=== PATIENT | female | born 1955 | race African-American/Black ===

== ENCOUNTER 2019-02-13 22:01 | Emergency (ER) | payer MEDICAID ==
[~2019-02-13] VITALS: Ht 165.1 cm; Wt 90.7 kg
[2019-02-13] MEDS ORDERED: ACETAMINOPHEN 325 MG TAB PO ONE (22:30)
[2019-02-13 23:25] LABS: Basophils # (auto) 0.1 uL; Basophils % (auto) 0.4 % (0.0-2.0); Eosinophils # (auto) 0 uL; Hematocrit 40.1 % (36.0-46.0); Hemoglobin 13.1 g/dL (12.2-16.2); Lymphocytes # (auto) 1.5 uL; Lymphocytes % (auto) 11.2 % (10.0-50.0); Mean Corpuscular Hemoglobin 29.6 pg (28.0-32.0); Mean Corpuscular Hgb Conc. 32.7 g/dL (32.0-36.0); Mean Corpuscular Volume 90.6 fL (80.0-100.0); Monocytes # (auto) 0.6 uL; Monocytes % (auto) 4.3 % (0.0-12.0); Neutrophils % (auto) 84.1 % (37.0-80.0); Platelet Count (auto) 245 10^3/uL (140-450); Red Blood Cells 4.43 10^6/uL (4.0-5.20); Red Cell Distribution Width 13.7 % (11.8-14.3); White Blood Cell 13.1 10^3/uL (4.4-10.8)
[2019-02-13 23:41] LABS: INR 1.02 (0.9-1.15); Partial Thromboplastin Time 26.9 sec (23.78-33.04); Prothrombin Time 10.9 sec (9.27-12.13)
[2019-02-13 23:43] LABS: Albumin 3.8 g/dL (3.4-5.0); Anion Gap 6 (5-15); Blood Urea Nitrogen 13 mg/dL (7-18); Carbon Dioxide 26 mmol/L (21-32); Chloride 106 mmol/L (98-107); Glucose 99 mg/dL (74-106); Potassium 3.8 mmol/L (3.5-5.1); Sodium 138 mmol/L (136-145)
[2019-02-13 23:45] LABS: Alanine Aminotransferase 21 U/L (13-56); Aspartate Aminotransferase 14 U/L (15-37); BUN/Creatinine Ratio 9.8; GFR African American 52 mL/min; GFR Non-African American 43 mL/min
[2019-02-13 23:50] LABS: Alkaline Phosphatase 73 U/L (45-117); Bilirubin, Total 0.5 mg/dL (0.2-1.0); Total Protein 8.8 g/dL (6.4-8.2)
[2019-02-14] MEDS ORDERED: SODIUM CHLORIDE 0.9% 1,000 ML IV ONE (01:30)
[2019-02-14 03:57] LABS: Alcohol, Urine < 3.0 mg/dL (0-5); Amphetamine Screen, Urine NEGATIVE (NEGATIVE); Barbiturate Scree,Urine NEGATIVE (NEGATIVE); Benzodiazephine Screen, Urine NEGATIVE (NEGATIVE); Cannabinoid Screen, Urine NEGATIVE (NEGATIVE); Cocaine Screen, Urine NEGATIVE (NEGATIVE); Opiate Scree,Urine NEGATIVE (NEGATIVE); Phencyclidine Screen, Urine NEGATIVE (NEGATIVE)
[2019-02-14 04:07] LABS: Urine Bacteria MOD /hpf (None Seen); Urine Blood Negative /uL (Negative); Urine Mucus FEW (None Seen); Urine Specific Gravity 1.015 (1.001-1.035); Urine WBC 14 /hpf (0 - 5)
[2019-02-14 04:30] VITALS: BP 151/75
[2019-02-14] MEDS ORDERED: ACETAMINOPHEN 325 MG TAB PO ONE (04:30)
[2019-02-14] MEDS ORDERED: cefTRIAXone 1GM/50ML D5W 50 ML IV ONE (05:00)
== END 2019-02-14 06:11 | disposition home or self-care (01) ==
LOC: EDBD 22:01 → ER 22:09
DX: R53.1 Weakness (principal); N39.0 Urinary tract infection, site not specified; F17.210 Nicotine dependence, cigarettes, uncomplicated; E11.9 Type 2 diabetes mellitus without complications; I10 Essential (primary) hypertension; Z86.39 Personal history of other endocrine, nutritional and metabolic disease; Z88.8 Allergy status to other drugs, medicaments and biological substances
CPT/HCPCS: 36415; 71045; 80053; 80307; 80320; 81001; 83880; 84484; 85025; 85610; 85730; 94761; 96365; 99284; J0696; J7030

== ENCOUNTER 2023-05-16 18:49 | Emergency (ER) | payer OTHER, MEDICAID ==
[~2023-05-16] VITALS: Ht 165.1 cm; Wt 77.3 kg
[~2023-05-16 18:49] MED LIST: CIPR-173 PO
[2023-05-16 19:54] LABS: Basophils # (auto) 0.1 10 ^3/uL (0-0.2); Basophils % (auto) 1.4 % (0.0-2.0); Eosinophils # (auto) 0.2 10 ^3/uL (0-0.8); Eosinophils % (auto) 2.5 % (0.0-7.0); Hematocrit 32.4 % (36.0-46.0); Hemoglobin 10.7 g/dL (12.2-16.2); Lymphocytes # (auto) 1.1 10 ^3/uL (0.4-5.4); Lymphocytes % (auto) 15.1 % (10.0-50.0); Mean Corpuscular Hemoglobin 28.1 pg (28.0-32.0); Mean Corpuscular Hgb Conc. 32.9 g/dL (32.0-36.0); Mean Corpuscular Volume 85.5 fL (80.0-100.0); Monocytes # (auto) 0.5 10 ^3/uL (0-1.3); Monocytes % (auto) 6.4 % (0.0-12.0); Neutrophils # (auto) 5.3 10 ^3/uL (1.6-8.6); Neutrophils % (auto) 74.6 % (37.0-80.0); Nucleated Red Blood Cells % 0.1 %; Red Blood Cells 3.79 10^6/uL (4.0-5.20); Red Cell Distribution Width 13.5 % (11.8-14.3); White Blood Cell 7.1 10^3/uL (4.4-10.8)
[2023-05-16 20:11] LABS: Albumin 2.7 g/dL (3.4-5.0); Calcium 8.4 mg/dL (8.5-10.1); Potassium 4.1 mmol/L (3.5-5.1)
[2023-05-16 20:14] LABS: BUN/Creatinine Ratio 16.1 (10.0-20.0); Bilirubin, Total 0.2 mg/dL (0.2-1.0); Total Protein 7.3 g/dL (6.4-8.2)
[2023-05-16 21:24] LABS: Urine Bacteria NONE SEEN /hpf (None Seen); Urine Blood Negative /uL (Negative); Urine Hyaline Cast MOD /lpf (0 - 2); Urine Mucus FEW (None Seen); Urine Specific Gravity 1.029 (1.001-1.035); Urine WBC 68 /hpf (0 - 5)
[2023-05-16] MEDS ORDERED: cefTRIAXone 1GM/50ML D5W 50 ML IV ONE (23:00)
[2023-05-16] MEDS ORDERED: AZITHROMYCIN 500MG/ 250ML 250 ML IV ONE (23:00)
[2023-05-17] MEDS ORDERED: SODIUM CHLORIDE 0.9% 1,000 ML IV ONE
[2023-05-17] MEDS ORDERED: MORPHINE SULFATE 4 MG/ML SYR/VIAL IV ONE
[2023-05-17] MEDS ORDERED: ALBU108A5 IN (01:54)
[2023-05-17] MEDS ORDERED: AZITTAB PO (01:54)
[2023-05-17 04:54] VITALS: BP 147/80
== END 2023-05-17 04:56 | disposition home or self-care (01) ==
LOC: ER 18:52
DX: J90 Pleural effusion, not elsewhere classified (principal); J18.9 Pneumonia, unspecified organism; I10 Essential (primary) hypertension; E11.9 Type 2 diabetes mellitus without complications; E78.5 Hyperlipidemia, unspecified; M19.90 Unspecified osteoarthritis, unspecified site; F17.210 Nicotine dependence, cigarettes, uncomplicated; Z88.6 Allergy status to analgesic agent; Z90.89 Acquired absence of other organs; Z79.899 Other long term (current) drug therapy
CPT/HCPCS: 36415; 71045; 80053; 81001; 83690; 84443; 84484; 85025; 93005; 96365; 96366; 96367; 99285; J0456; J0696; J7030; 96368